=== PATIENT | female | born 1995 | race Asian ===

== ENCOUNTER 2024-05-02 06:13 | Day surgery (SDC) | payer BC, SELFPAY | END 2024-05-02 08:54 | disposition home or self-care (01) | LOC: GI 06:13 | PROVIDERS: ATTENDING PHYSICIAN Surgery | DX: K62.5 Hemorrhage of anus and rectum (principal); K64.9 Unspecified hemorrhoids; Z80.0 Family history of malignant neoplasm of digestive organs | CPT/HCPCS: 45378 ==

== ENCOUNTER → 2024-06-12 11:31 | Outpatient (REF) | payer BC, SELFPAY | LOC: HWRAD 11:31 | PROVIDERS: ATTENDING PHYSICIAN Nurse Practitioner Family | DX: M54.50 Low back pain, unspecified (principal) | CPT/HCPCS: 72110; 72220 ==